=== PATIENT | female | born 1955 | race Caucasian/White ===

== ENCOUNTER 2022-03-16 12:35 | Emergency (ER) | payer OTHER, SELFPAY ==
[2022-03-16 13:07] VITALS: BP 125/79; PULSE 73; RESP 18; TEMP 36.9; O2SAT 98; BMI 26.1
[2022-03-16 13:22] LABS: MANUAL DIFF FLAG NO
[2022-03-16 13:25] LABS: Basophils Percent Auto 0.6 % (0-2); Eosinophils Percent Auto 0.4 % (0-4); Hematocrit 40.9 % (37.0-47.0); Hemoglobin 13.2 g/dl (12.0-16.0); Imm Gran Abs Auto 0.03 X10*3/uL (0.00-0.03); Imm Gran Pct Auto 0.4 % (0.0-0.4); Lymphocytes Absolute Auto 2.7 X10*3/uL (1.2-4.9); Lymphocytes Percent Auto 36.5 % (20-40); Mean Corpuscular HGB Conc 32.3 g/dl (31.0-35.0); Mean Corpuscular Hemoglobin 26.8 pg (27.0-33.0); Mean Platelet Volume 9.4 fL (9.4-12.3); Monocytes Absolute Auto 1.2 X10*3/uL (0.1-1.2); Monocytes Percent Auto 15.8 % (2-11); Neutrophils Absolute Auto 3.4 x10*3/uL (2.0-8.3); Neutrophils Percent Auto 46.3 % (45-73); Platelet Count 240 X10*3/uL (160-400); Red Blood Count 4.93 X10*6/uL (4.20-5.50); Red Cell Distribution Width 13.5 % (11.0-16.0); White Blood Count 7.3 X10*3/uL (4.8-10.8)
[2022-03-16 13:32] LABS: Appearance Urine CLEAR; Color Urine YELLOW; Glucose Urine UA NEG (NEG); Leukocyte Esterase Urine 2+ (NEG); Nitrite Urine NEG (NEG); Specific Gravity - Urine <= 1.005 (1.005-1.025); UACC Culture Trigger YES; Urine Blood NEG (NEG); Urine Ketones NEG (NEG); Urine Protein NEG (NEG-TRACE)
[2022-03-16 13:37] LABS: Anion Gap 13 (12-20); Blood Urea Nitrogen 16 mg/dL (9-16); Calcium 9.5 mg/dL (8.4-10.2); Carbon Dioxide 25 mmol/L (22-29); Chloride 101 mmol/L (96-108); Creatinine Clr Calc Pharmacy 64.4; Estimated Glomerular Filt Rate > 60; Glucose Random 88 mg/dL (60-115); Potassium 4.3 mmol/L (3.3-5.1); Sodium 135 mmol/L (135-145)
[2022-03-16 13:42] LABS: COVID-19 Test Negative (Negative); IDNOW Serial# 16C4AD1C; Influenza A Negative (Negative); Influenza B2 Negative (Negative)
[2022-03-16 13:55] LABS: Bacteria Urine 3+ /LPF; Mucus Urine TRACE /LPF; RBC Urine 0-2 /HPF (0); Squamous Epithelial Cell Urine 3+ /LPF
[2022-03-16 13:56] LABS: WBC Clumps Urine NOTED
--- NOTE | 2022-03-16 14:22 | ED_ITS ---
HPI - Female Genitourinary General Chief complaint: Urogenital-Female Stated complaint: fever Time Seen by Provider: 03/16/22 14:22 Source: patient and garden machinery mechanic Mode of arrival: ambulatory Limitations: language barrier History of Present Illness HPI Narrative: Patient is a 66 year old female presenting to the emergency department today with symptoms of a urinary tract infection. Patient states that she is concerned that she has a urinary tract infection because she is having fevers at home and increased urinary urgency/frequency. Patient denies any dizziness, lightheadedness, abdominal pain, nausea, vomiting, fever, chills, blurry vision, double vision, loss of vision, chest pain, difficulty breathing, shortness of breath, back pain, night sweats, pain with urination, blood in her urine or stool, syncope or a near syncopal episode, recent trauma or falls, bowel incontinence, bladder incontinence, bowel retention, bladder retention, or any other complaints at this time. MD elicited complaint: UTI Onset (ago): day(s) Vaginal discharge: none Vaginal bleeding: none Urinary symptoms: Urgency and Frequency Exacerbating factors: none Relieving factors: none Associated symptoms: denies other symptoms Treatment prior to arrival: none Patient : No Related Data Previous Rx's Medication Instructions Recorded cephalexin 500 mg capsule 500 mg PO Q6H 7 days #28 caps 03/16/22 Allergies Allergy/AdvReac Type Severity Reaction Status Date / Time No Known Allergies Allergy Verified 03/16/22 14:22 Review of Systems Constitutional: Constitutional: Reports no additional constitutional complaints, Denies chills, Denies fever(s) and Denies night sweats Eyes: Eyes: Reports no additional eye complaints, Denies blurry vision, Denies change in vision, Denies diplopia, Denies eye discharge, Denies loss of vision and Denies eye pain ENT: Denies dizziness Cardiovascular: Cardiovascular: Reports no additional cardiovascular complaints, Denies chest pain, Denies lightheadedness, Denies Loss of Consciousness and Denies dyspnea Respiratory: Respiratory: Reports no additional respiratory complaints and Denies dyspnea Gastrointestinal: Gastrointestinal: Reports no additional gastrointestinal complaints, Denies abdominal pain, Denies melena, Denies hematochezia, Denies change in bowel habits and Denies change in stool character Genitourinary: Genitourinary: Denies hematuria, Denies urinary frequency, Denies dysuria, Denies urinary incontinence, Denies urinary hesitancy and Reports urinary urgency Musculoskeletal: Musculoskeletal: Reports no additional musculoskeletal complaints, Denies numbness and Denies tingling Neurologic: Denies dizziness, Denies loss of vision, Denies numbness and Denies tingling Psychiatric: Psychiatric: Reports no additional psychiatric complaints Endocrine: Endocrine: Reports no additional endocrine complaints Hematologic/Lymphatic: Hematologic/Lymphatic: Reports no additional hematologic/lymphatic complaints Allergic/Immunologic: Allergic/Immunologic: Reports no additional allergic/immunologic complaints PMFSH Past Medical History Attestation statement: The following information was validated with the patient. Source: old records reviewed Social History Social History Advance Directives: No Advance Directives Information Provided: No Physical Exam Vital Signs: Vital Signs: Last Vital Signs Temp 98.4 F 03/16/22 13:07 Pulse 73 03/16/22 13:07 Resp 18 03/16/22 13:07 BP 125/79 03/16/22 13:07 Pulse Ox 98 03/16/22 13:07 O2 Del Method 03/16/22 13:07 BMI result Body Mass Index 26.1 Const: General: cooperative, no acute distress, alert and awake Nutritional Appearance: well nourished Orientation/consciousness: patient oriented x3 Limitations: no limitations HEENT: Head: Yes normal to inspection and Yes atraumatic Ears: hearing grossly normal bilaterally and external ears normal General nose exam: Normal external nose present, no nasal discharge noted and no epistaxis Face and sinus: Yes normal facial exam, No abrasion and No laceration Mouth: Normal oral and palatal mucosa present, no drooling and no muffled voice Eyes: General: appearance normal, both eyes and all related structures Periorbital: periorbital findings normal Eyelids: Yes eyelids normal Conjunctivae: conjunctivae normal Pupils: Equal, round and reactive pupils present EOM: EOMs intact bilaterally Neck: Neck: Yes normal visual inspection, Yes full ROM and Yes no lymphadenopathy Chest: Chest palpation & inspection: normal inspection of the chest Resp: Effort & Inspection: normal respiratory effort and able to speak in complete sentences Auscultation: clear to auscultation bilaterally Cardio: Rate: regular rate Rhythm: regular rhythm GI: Inspection: Yes normal to inspection Palpation (GI): Soft to palpation, not firm, nontender and no guarding Neuro: General: patient oriented x3 and moves all extremities Cranial nerves: Yes Equal, round and reactive pupils present Cognition (Neuro): n ormal cognition Motor exam (neuro): 5/5 motor strength present throughout Sensory Exam: Normal double simultaneous stimulation for sensation Coordination: [id number] test normal Extrem: General: Yes normal to inspection, Yes full ROM and Yes capillary refill normal Psych: Appearance: grossly normal Mental Status: mental status grossly normal Affect: normal affect Attitude: cooperative Thought process: Normal thought process present Thought content: Normal thought content present Insight: Good insight present (Psych) MDM - Female Genitourinary MDM Narrative Medical decision making narrative: Patient is a 66 year old female presenting to the emergency department today with a urinary tract infection. Patient's physical exam was unremarkable. Patient's blood work was unremarkable. Patient's urine showed an acute infection. I explained my physical exam findings as well as all test results to the patient. I answered all questions asked by the patient. I stressed the importance of the patient taking her medication as prescribed. I stressed the importance of the patient following up with her primary care provider. I stressed the importance of the patient returning to the emergency department immediately if her symptoms were to worsen or if she were to develop any dizziness, shortness of breath, difficulty breathing, chest pain, blurry vision, loss of vision, nausea, vomiting, abdominal pain, fever, chills, back pain, or any other complaints. Patient verbalized agreement and understanding with this treatment plan and discharge. Differential Diagnosis Differential diagnosis: Likely urinary tract infection Medical Records Attestation: I reviewed the patient's medical records. Lab Data Attestation: I reviewed the patient's lab results. Result diagrams: 03/16/22 13:16 03/16/22 13:16 Labs: Lab Results 03/16/22 03/16/22 03/16/22 Range/Units 13:16 13:16 13:16 WBC 7.3 (4.8-10.8) X10*3/uL RBC 4.93 (4.20-5.50) X10*6/uL Hgb 13.2 (12.0-16.0) g/dl Hct 40.9 (37.0-47.0) % MCV 83.0 (80.0-98.0) fL MCH 26.8 L (27.0-33.0) pg MCHC 32.3 (31.0-35.0) g/dl RDW 13.5 (11.0-16.0) % Plt Count 240 (160-400) X10*3/uL MPV 9.4 (9.4-12.3) fL Immature Gran % (Auto) 0.4 (0.0-0.4) % Neut % (Auto) 46.3 (45-73) % Lymph % (Auto) 36.5 (20-40) % [facility] [place] [facility] % (Auto) 15.8 H (2-11) % Eos % (Auto) 0.4 (0-4) % Baso % (Auto) 0.6 (0-2) % Lymph # (Auto) 2.7 (1.2-4.9) X10*3/uL [facility] [place] [facility] # (Auto) 1.2 (0.1-1.2) X10*3/uL Eos # (Auto) 0.0 (0.0-0.4) X10*3/uL Baso # (Auto) 0.0 (0.0-0.2) X10*3/uL Abs Immat Gran (auto) 0.03 (0.00-0.03) X10*3/uL Absolute Neuts (auto) 3.4 (2.0-8.3) x10*3/uL Absolute Nucleated RBC 0.000 (0.0-0.012) X10*3/uL Nucleated RBC % (auto) 0.0 (0.0-0.2) /100WBC Sodium 135 (135-145) mmol/L Potassium 4.3 (3.3-5.1) mmol/L Chloride 101 (96-108) mmol/L Carbon Dioxide 25 (22-29) mmol/L Anion Gap 13 (12-20) BUN 16 (9-16) mg/dL Creatinine 0.84 (0.5-1.4) mg/dL Estim Creat Clear Calc 64.4 Estimated GFR > 60 Random Glucose 88 (60-115) mg/dL Calcium 9.5 (8.4-10.2) mg/dL Urine Color Urine Appearance Urine pH (5.0-8.0) Ur Specific [place] (1.005-1.025) Urine Protein (NEG-TRACE) MG/DL Urine Glucose (UA) (NEG) MG/DL Urine Ketones (NEG) MG/DL Urine Blood (NEG) Urine Nitrite (NEG) Ur Leukocyte Esterase (NEG) Urine RBC (0) /HPF Urine WBC (0-4) /HPF Urine WBC Clumps Ur Squamous Epith Cells /LPF Urine Bacteria /LPF Urine Mucus /LPF COVID-19 (HERNANDO) (Negative) COVID-19 Clin Com Influenza Type A (PHILIP) Negative (Negative) Influenza Type B (PHILIP) Negative (Negative) Influenza A & B Note See Note 03/16/22 03/16/22 Range/Units 13:16 13:16 WBC (4.8-10.8) X10*3/uL RBC (4.20-5.50) X10*6/uL Hgb (12.0-16.0) g/dl Hct (37.0-47.0) % MCV (80.0-98.0) fL MCH (27.0-33.0) pg MCHC (31.0-35.0) g/dl RDW (11.0-16.0) % Plt Count (160-400) X10*3/uL MPV (9.4-12.3) fL Immature Gran % (Auto) (0.0-0.4) % Neut % (Auto) (45-73) % Lymph % (Auto) (20-40) % [facility] [place] [facility] % (Auto) (2-11) % Eos % (Auto) (0-4) % Baso % (Auto) (0-2) % Lymph # (Auto) (1.2-4.9) X10*3/uL [facility] # (Auto) (0.1-1.2) X10*3/uL Eos # (Auto) (0.0-0.4) X10*3/uL Baso # (Auto) (0.0-0.2) X10*3/uL Abs Immat Gran (auto) (0.00-0.03) X10*3/uL Absolute Neuts (auto) (2.0-8.3) x10*3/uL Absolute Nucleated RBC (0.0-0.012) X10*3/uL Nucleated RBC % (auto) (0.0-0.2) /100WBC Sodium (135-145) mmol/L Potassium (3.3-5.1) mmol/L Chloride (96-108) mmol/L Carbon Dioxide (22-29) mmol/L Anion Gap (12-20) BUN (9-16) mg/dL Creatinine (0.5-1.4) mg/dL Estim Creat Clear Calc Estimated GFR Random Glucose (60-115) mg/dL Calcium (8.4-10.2) mg/dL Urine Color YELLOW Urine Appearance CLEAR Urine pH 6.0 (5.0-8.0) Ur Specific [place] <= 1.005 (1.005-1.025) Urine Protein NEG (NEG-TRACE) MG/DL Urine Glucose (UA) NEG (NEG) MG/DL Urine Ketones NEG (NEG) MG/DL Urine Blood NEG (NEG) Urine Nitrite NEG (NEG) Ur Leukocyte Esterase 2+ H (NEG) Urine RBC 0-2 (0) /HPF Urine WBC 15-29 H (0-4) /HPF Urine WBC Clumps NOTED Ur Squamous Epith Cells 3+ /LPF Urine Bacteria 3+ /LPF Urine Mucus TRACE /LPF COVID-19 (HERNANDO) Negative (Negative) COVID-19 Clin Com See Note Influenza Type A (PHILIP) (Negative) Influenza Type B (PHILIP) (Negative) Influenza A & B Note Discharge Plan Discharge Clinical Impression: Urinary tract infection Patient Disposition: Home, Self-Care Instructions: Urinary Tract Infection in Women (ED) Additional Instructions: Follow up with your primary care provider. Return to the emergency department immediately if your symptoms worsen or if you develop any dizziness, shortness of breath, difficulty breathing, chest pain, blurry vision, loss of vision, nausea, vomiting, abdominal pain, fever, chills, back pain, or any other complaints. Prescriptions: New cephalexin 500 mg capsule 500 mg PO Q6H 7 Days Qty: 28 0RF Referrals: Lola Shine MD [Primary Care Provider] - Print Language: Latvian
== END 2022-03-16 14:50 | disposition home or self-care (01) ==
PROVIDERS: Emergency Provider Emergency Medicine; PCP Pediatrics
DX: N39.0 Urinary tract infection, site not specified (principal); Z20.822 Contact with and (suspected) exposure to COVID-19
CPT/HCPCS: 80048; 81001; 85025; 87086; 87088; 87186; 87502; 87635; 99283

== ENCOUNTER 2024-09-23 08:53 | Outpatient (REF) | payer OTHER, SELFPAY ==
--- OUTSIDE RECORDS SUMMARY | 2024-09-23 09:04 | XMS_ITS | Continuity of Care Document ---
Author Organization [facility] Address [address] [address],[address] [place] [address] Phone Care Team Providers Care Corporate Paralegal Name Role Phone Unavailable Unavailable Unavailable Allergies, Adverse Reactions, Alerts Substance Reaction Status Criticality No Known Allergies Active No Inform ation Medications Medication Instructions Dosage Effective Dates (start - stop) Status Comments penicillin V potassium 500 mg tablet take 1 tablet (500MG) by oral route every 6 hours for 7 days - Active chlorhexidine gluconate 0.12 % mouthwash place 15 milliliter by mucous membrane route 2 times every day in the mouth (after meals), swish in mouth for 30 seconds then spit out 15.00 milliliter - Active enalapril maleate 2.5 mg tablet take 1 tablet by oral route every day 2.5 MG - Active Excedrin Extra Strength 250 mg-250 mg-65 mg tablet - Active Procedures Procedure Date Intraoral-Complete Series (Including Bit ewings) Comprehensive Oral Evaluation-New Or Est ablished P Intraoral-Periapical First Film 017 Palliative (Emergency) Treatment Of [place] al Pain Advance Directives Directive Yes / No Effective Date File Name No Information Encounters Encounter Description Practice Location Reason(s) For Visit Diagnoses Date Provider Providers Copied on Encounter [facility] Velaz[facility], [address] [place] [address],[address], [place], [place], [id number], [place] tel:[phone] [address] [place] [address] Dental Encounter for dental exam and cleaning w/o abnormal findings 0-201 7 No Information Khai Velazquez [facility], [address] [place] [address],[address], [place], [place], [id number], [place] tel:[phone] Encounter for dental exam and cleaning w/o abnormal findings No Information Family History Family Member Type Diagnosis Age At Onset No Information Payers Payer name Insurance type Covered republican ID Marci jose(albin Durán [employer] [facility] +21 CI [id number] D [employer] Safety Net [id number] Social History Type Description Quantity Date Captured Comments Alcohol Use Details Unknown Caffeine Use Details Unknown Tobacco Use Status No Information Smoking Status Never smoker Non-Smoking Tobacco Use Details : No Details Available : No Details Available Sex Female Vital Signs Date / Time: Height Weight BMI Pulse Rate Blood Pressure Temperature Respiratory Rate Body Surface Area Head Circumference Head Circ. Percentile Wt./Jesus. Percentile BMI percentile Pulse Ox Inhaled Ox 3:39 PM 79 /min 116/78 mm[Hg] Chief Complaint And Reason For Visit No Information Reason For Referral Reason For Referral No Information Plan Of Treatment Date Type Action Status Goal CT-Colonography. Due on due Goal FIT-DNA. Due on due Goal HPV. Due on due Goal Unhealthy drug use screening . Due on due Goal Zoster vaccine (). Due on due Goal FOBT. Due on due Goal Hepatitis C Screening. Due o n due Goal Document SOGI Information. D ue on due Goal Lipid panel. Due on 017 due Goal Td vaccine. Due on 17 due Goal Colonoscopy. Due on 017 due Goal Mammogram. Due on 7 due Goal APE. Due on due Goal Tdap. Due on due Goal PAP. Due on due Goal Pap/HPV testing. Due on due Goal Influenza vaccine. Due on due Goal Mammogram. Due on 7 due Goal Colonoscopy. Due on 017 due Goal Pap/HPV testing. Due on due Goal Tdap. Due on due Goal APE. Due on due Goal Influenza vaccine. Due on due Goal PAP. Due on due History Of Present Illness Encounter Date Complaint History Of Prese nt Illness No Information Functional Status Date Functional Assessmen t No Information Instructions Date Instruction Additional Infor mation No Information Assessments Type Assessment Date No Information Patient Care Teams Name Effective Dates (start - stop) Status Members No Information
[2024-09-23 14:20] LABS: MANUAL DIFF FLAG NO
[2024-09-23 14:25] LABS: Basophils Absolute Auto 0.1 X10*3/uL (0.0-0.2); Basophils Percent Auto 0.5 % (0-2); Eosinophils Absolute Auto 0.1 X10*3/uL (0.0-0.4); Eosinophils Percent Auto 1.4 % (0-4); Hematocrit 42.9 % (37.0-47.0); Hemoglobin 13.9 g/dl (12.0-16.0); Imm Gran Abs Auto 0.04 X10*3/uL (0.00-0.03); Imm Gran Pct Auto 0.4 % (0.0-0.4); Lymphocytes Absolute Auto 2.1 X10*3/uL (1.2-4.9); Mean Corpuscular HGB Conc 32.4 g/dl (31.0-35.0); Mean Corpuscular Hemoglobin 28.1 pg (27.0-33.0); Mean Corpuscular Volume 86.8 fL (80.0-98.0); Mean Platelet Volume 10.8 fL (9.4-12.3); Monocytes Absolute Auto 0.5 X10*3/uL (0.1-1.2); Monocytes Percent Auto 5.5 % (2-11); Neutrophils Absolute Auto 6.6 x10*3/uL (2.0-8.3); Neutrophils Percent Auto 70.2 % (45-73); Platelet Count 203 X10*3/uL (160-400); Red Blood Count 4.94 X10*6/uL (4.20-5.50); Red Cell Distribution Width 13.5 % (11.0-16.0); White Blood Count 9.4 X10*3/uL (4.8-10.8)
[2024-09-23 14:48] LABS: Alanine Aminotransferase 68 U/L (0-31); Alkaline Phosphatase 102 U/L (39-117); Anion Gap 8 (12-20); Aspartate Amino Transferase 49 U/L (5-31); Bilirubin Direct 0.2 mg/dL (0.0-0.5); Bilirubin Total 0.6 mg/dL (0.0-1.0); Blood Urea Nitrogen 15 mg/dL (9-16); Calcium 9.3 mg/dL (8.4-10.2); Carbon Dioxide 28 mmol/L (22-29); Chloride 108 mmol/L (96-108); Cholesterol 219 mg/dL (<200); Estimated Glomerular Filt Rate > 60; Glucose Fasting 132 mg/dL (60-99); HDL Cholesterol 67 mg/dL (>40); LDL Cholesterol Calculated 131 mg/dL (<100); Potassium 4.3 mmol/L (3.3-5.1); Sodium 140 mmol/L (135-145); Total Protein 7.1 g/dL (6.5-8.0); Triglycerides 109 mg/dL (<150)
[2024-09-23 14:56] LABS: Creatinine Urine 101.98 mg/dL; Microalbum/Creatinine Ratio Ur 16.6 ug/mg cr (<30)
[2024-09-23 15:06] LABS: TSH reflex Free T4 1.74 uIU/mL (0.32-4.0)
== END 2024-09-23 08:54 | disposition home or self-care (01) ==
LOC: HO.CHCLDS 08:53
PROVIDERS: Visit Provider Pediatrics
DX: I10 Essential (primary) hypertension (principal); E78.00 Pure hypercholesterolemia, unspecified; F41.9 Anxiety disorder, unspecified; F32.A Depression, unspecified
CPT/HCPCS: 36415; 80048; 80061; 80076; 82043; 82570; 84443; 85025

== ENCOUNTER → 2024-11-04 08:12 | Outpatient (REF) | payer OTHER, SELFPAY ==
--- OUTSIDE RECORDS SUMMARY | 2024-11-04 08:14 | XMS_ITS | Encounter Summary ---
Author Organization [employer] Address [address] [place] [address] Care Team Providers Care Shed Workers Supervisor Name Role Phone Lola Shine MD Primary Care Provider [phone] Encounter Details Date Type Department Care Team (Late st Contact Info) Description 08/13/2023 Abstract [facility] MEDICINE [address] [place] [address] Sandee Galeas Social History Tobacco Use Types Packs/Day Years Used Date Smoking Tobacco: Never Passive Smoke Exposure: Never Smokeless Tobacco: Never Housing Stability Answer Date Recorded What is your housing situation today? [place] have [place] 07/29/[address] you li ve. Do you have problems with any of the following? None of the above 07/29/2023 Food Insecurity Answer Date Recorded Within the past 12 months, y ou worried that your food would run out before you got money to buy more: Never True 07/29/2023 Within the past 12 months,th e food you bought just didn't last and you didn't have enough money to get more: Never True Transportation Answer Date Recorded In the past 12 months, has l ack of transportation kept you from medical appts, meetings, work or from getting things needed for daily living? No 07/29/2023 Utilities Answer Date Recorded In the past 12 months, has t he electric, gas, oil or water company threatened to shut off services in your home? No 07/29/2023 Comments Unknown Sex and Gender Information Value Date Recorded Sex Assigned at Female 08/04/2022 10:20 AM EDT Legal Sex Female 10:20 AM EDT Gender Identity Female 08/04/2022 10:20 AM EDT Sexual Orientation Straight 08/04/2022 10 :20 AM EDT documented as of this encounter Plan of Treatment Upcoming Encounters Date Type Department Care Team (Late st Contact Info) Description 11/23/2024 11:30 AM EST Office Visit [facility] PEDS [address] [place] [address] Lola Shine MD [address] [place] [address] documented as of this encounter Procedures Procedure Name Priority Date/Time Associated Diagnosis Comments COLONOSCOPY Routine 06/05/2013 documented in this encounter Results * Hm Colonoscopy (06/05/2013) Colonoscopy Normal Normal Narrative Sandee Galeas - 06/05/2013 Recommended 5 year follow I[ us Historical Provider HEALTH MAINTENANCE Final Result documented in this encounter Visit Diagnoses Not on filedocumented in this encounter Care Teams Shed Workers Supervisor Relationship Specialty Start Date End Date Lola Shine MD [address] [place] [address] PCP - General Family Medicine 10/05/18 documented as of this encounter
--- OUTSIDE RECORDS SUMMARY | 2024-11-04 08:14 | XMS_ITS | Continuity of Care Document ---
Author Organization [facility] Address [address] [address],[address] [place] [address] Phone Care Team Providers Care Track Laying Supervisor Name Role Phone Unavailable Unavailable Unavailable Allergies, [...] First Film 017 Palliative (Emergency) Treatment Of [place] al Pain Advance Directives Directive Yes / No Effective Date File Name No Information Encounters Encounter Description Practice Location Reason(s) For Visit Diagnoses Date Provider Providers Copied on Encounter Khai Velazquez [facility], [address] [place] [address],[address], [place], [place], [id number], [place] tel:[phone] [address] [place] [address] Dental Encounter for dental exam and cleaning w/o abnormal findings 0-201 7 No Information [facility]ai Velazquez [facility], [address] [place] [address],[address], [place], [place], [id number], [place] tel:[phone] [facility] Encounter for dental exam and cleaning w/o abnormal findings No Information Family History Family Member Type Diagnosis Age At Onset No Information Payers Payer name Insurance type Covered democrat ID Marci jose(albin Durán [employer] [facility] +21 CI [id number] D Health Safety Net [id number] Social History Type Description Quantity Date Captured [...]
--- OUTSIDE RECORDS SUMMARY | 2024-11-04 08:14 | XMS_ITS | Encounter Summary ---
Author Organization [employer] Address [address] [place] [address] [place] [address] Care Team Providers Care Brine Supervisor Name Role Phone Lola Shine MD Primary Care Provider [phone] Reason for Visit * Reason Onset Date Comments Appointment Request 11/01/2024 Pt needs eladio t for derm Encounter Details Date Type Department Care Team ([facility] Contact Info) Description 11/01/[address] [facility] MED & PEDS [address] [place] [address] Lola Shine MD [address] [place] [address] Appointment Request (Pt needs appt for derm) Social History Tobacco Use Types Packs/Day Years Used Date Smoking Tobacco: Never Passive Smoke Exposure: Never Smokeless Tobacco: Never Depression Answer Date Recorded Patient Health Questionnaire-9 Score 11 09/22/2024 Patient Health Questionnaire-9 Score 11 09/22/2024 Last PHQ-9: Questionnaire Data Not on file 1 11/23/2023 Housing Stability Answer Date Recorded What is your housing situation today? I have [place] park 09/22/[address] you li ve. Do you have problems with any of the following? None of the above 09/22/2024 Food Insecurity Answer Date Recorded Within the past 12 months, y ou worried that your food would run out before you got money to buy more: Never True 09/22/2024 Within the past 12 months,th e food you bought just didn't last and you didn't have enough money to get more: Never True Transportation Answer Date Recorded In the past 12 months, has l ack of transportation kept you from medical appts, meetings, work or from getting things needed for daily living? No 09/22/2024 Utilities Answer Date Recorded In the past 12 months, has t he electric, gas, oil or water company threatened to shut off services in your home? No 09/22/2024 Depression Answer Date Recorded Patient Health Questionnaire-2 Score 4 09/22/2024 Internet Access Answer Date Recorded Internet Access Q1 Yes 09/22/2024 Internet Access Q2 Not on file 09/22/2024 Comments No Sex and Gender Information Value Date Recorded Sex Assigned at Female 08/04/2022 10:20 AM EDT Legal Sex Female 10:20 AM EDT Gender Identity Female 08/04/2022 10:20 AM EDT Sexual Orientation Straight 08/04/2022 10 :20 AM EDT documented as of this encounter Miscellaneous Notes * Telephone Encounter - Thuy Gonzales [place] - 11/01/2024 10:10 AM EST Called pt to schedule appt with dr. Worley f/u skin lesion no voice message qavailable phone not on sservice documented in this encounter Plan of Treatment Upcoming Encounters Date Type Department Care Team (Late st Contact Info) Description 11/23/2024 11:30 AM EST Office Visit [facility] PEDS [address] [place] [address] Lola Shine MD [address] [place] [address] documented as of this encounter Visit Diagnoses Not on filedocumented in this encounter Additional Health Concerns Assessment Noted Time PHQ-9 Depression Total Score: 11 024 2:37 PM EST documented as of this encounter Care Teams Brine Supervisor Relationship Specialty Start Date End Date Lola Shine MD [address] [place] [address] PCP - General Family Medicine 10/05/18 documented as of this encounter
--- OUTSIDE RECORDS SUMMARY | 2024-11-04 08:14 | XMS_ITS | Clinical Summary ---
Author Organization [facility] Address [address] [place] [address] [address] [place] [address] Care Team Providers Care Supplier Quality Specialist Name Role Phone Lola Shine MD Primary Care Provider [phone] Allergies No known active allergies Medications * This document contains information received from the source organization and may not represent a complete record from that organization. aspirin 81 MG EC tablet Take 81 mg by mouth 1 (one) time each day. 0 Active SM Vitamin D3 50 MCG capsuleIndication s:Vitamin D deficiency TAKE ONE CAPSULE TWICE DAILY 60 capsule 11 3 Active enalapril (Vasotec) 20 MG tabletIndications :Benign essential hypertension TAKE ONE TABLET EVERY DAY 90 tablet 1 4 Active Active Problems Problem Noted Date Diagnosed Date Primary insomnia 12/04/2015 Disorder of ankle joint 10/29/2012 Anxiety state 12/24/2011 Benign essential hypertension 12/24/2011 Pain in limb 12/24/2011 Pure hypercholesterolemia 12/24/2011 Urinary tract infectious disease 12/24/2011 Resolved Problems Problem Noted Date Diagnosed Date Resolved Date Acute pharyngitis 12/24/2011 09/18/2022 Acute upper respiratory infection 12/24/2011 09/18/2022 Encounters * This document contains information received from the source organization and may not represent a complete record from that organization. Date Type Department Care Team Description 11/01/2024 Telephone [facility] [address] [place] [address] Lola Shine MD Appointment Request (Pt needs appt for derm) 09/26/2024 Telephone [facility] [address] [place] [address] Lola Shine MD 09/25/2024 Orders Only [facility] [address] [place] [address] Lola Shine MD Transaminitis (Primary Dx) 09/22/2024 2:15 PM EST Office Visit [facility] [address] [place] [address] Lola Shine MD Benign essential hypertension (Primary Dx); Pure hypercholesterolemia; Anxiety and depression; Breast cancer screening by mammogram; Osteopenia of spine; Encounter for immunization; Dietary counseling; Exercise counseling; Skin lesion of left arm 09/22/2024 Travel 09/15/2024 Patient Outreach [facility] [address] [place] [address] Lola Shine MD Pre-visit Planning ([facility] unable to reach [facility]) from Last 3 Months Immunizations Name Administration Dates Next Due Influenza Injectable Quadriv alant Preservative Free IIV4 MDCK 09/30/2021 Influenza injectable quadriv alent IIV4 with preservative 08/21/2015 Influenza injectable quadriv alent preservative free 09/18/2022,09/30/2021,09/16/2016 Influenza, High Dose Seasona l, Preservative Free 09/22/2024 Influenza, IIV3, injectable 08/08/2014 Moderna Covid-19 Vaccine 12+ 01/31/2021,01/04/20 21 Pneumococcal Conjugate PCV 20 09/22/2024 Pneumococcal Polysaccharide PPSV23 02/21/2013 Tdap 12/04/2015 Social History Tobacco Use Types Packs/Day Years Used Date Smoking Tobacco: Never Passive Smoke Exposure: Never Smokeless Tobacco: Never Tobacco Cessation:Counseling Given: Not Answered Depression Answer Date Recorded Patient Health Questionnaire-9 [...] Orientation Straight 08/04/2022 10 :20 AM EDT Last Filed Vital Signs Vital Sign Reading Time Taken Comments Blood Pressure 128/78 09/22/2024 2:07 PM EST Pulse 80 09/22/2024 2:07 PM EST Temperature 36.7 ??C (98 ??F) 09/22/2024 2:07 PM EST Respiratory Rate 20 09/22/2024 2:07 PM EST Oxygen Saturation 98% 09/22/2024 2:07 PM EST Inhaled Oxygen Concentration - - Weight 83.5 kg (184 lb) 09/22/2024 2:07 PM EST Height 158.8 cm (5' 2.5 ) 09/22/2024 2:07 PM EST Body Mass Index 33.12 09/22/2024 2:07 PM EST Plan of Treatment Upcoming Encounters Date Type Department Care Team ([facility] st Contact Info) Description 11/23/2024 11:30 AM EST Office Visit [facility] [address] [place] [address] Lola Shine MD [address] [place] [address] Health Maintenance Due Date Last Done Comments CT Colonography 1955 FIT DNA/Cologuard 1955 FIT 1955 FOBT 1955 Sigmoidoscopy 1955 Hepatitis C Screening 1975 Mammogram 1997 Zoster Vaccines (1 of 2) 2007 Dental X-Ray: Bitewings 08/02/2009 08/01/2008 Dental X-Ray: Full Mouth 08/02/2011 08/01/2008 Dental Oral Exam 09/03/2012 03/02/2012, 08/14/2008 Dental Prophylaxis 09/03/2012 03/02/2012 Colonoscopy 06/05/2018 06/05/2013 Colorectal Cancer Screening 06/05/2018 COVID-19 Vaccine ( season) 2024 01/31/2021, 01/03/2021 Depression Monitoring (PHQ-9) 03/23/2025 09/22/2024, 09/22/2024 Alcohol/Substance Use Screening 09/22/2025 09/22/2024 Depression Screening 09/22/2025 09/22/2024, 09/22/20 24 SDOH Screening 09/22/2025 09/22/2024 Tobacco Screening 09/22/2025 09/22/2024 DTaP/Tdap/Td Vaccines (2 - Td or Tdap) 12/03/2025 12/04/2015 Lipid Panel 09/23/2029 09/23/2024, 11/05, 10/07/2021 RSV Patients and Patients Aged 60 years or older (1 - 1-dose 75+ series) 2032 Influenza Vaccine Completed 09/22/2024, , 09/30/2021, Additional history exists Pneumococcal Vaccine: 50+ Years Completed 09/22/2024, 02/21/2013 HIB Vaccines Aged Out No longer eligi ble based on patient's age to complete this topic HPV Vaccines Aged Out No longer eligi ble based on patient's age to complete this topic Hepatitis A Vaccines Aged Out No long er eligible based on patient's age to complete this topic Hepatitis B Vaccines Aged Out No long er eligible based on patient's age to complete this topic IPV Vaccines Aged Out No longer eligi ble based on patient's age to complete this topic Meningococcal Vaccine Aged Out No nahomi jean eligible based on patient's age to complete this topic RSV under 20 months Aged Out No longe r eligible based on patient's age to complete this topic Rotavirus Vaccines Aged Out No longer eligible based on patient's age to complete this topic Procedures Procedure Name Priority Date/Time Associated Diagnosis Comments ALBUMIN, RANDOM URINE W/CREATININE Routine 09/23/2024 9:00 AM EST Benign essential hypertension Pure hypercholesterolem ia Anxiety and depression LIPID PANEL, STANDARD Routine 09/23/2024 8:54 AM EST Benign essential hypertension Pure hypercholesterolem ia Anxiety and depression TSH W/REFLEX TO FT4 Routine 09/23/2024 8 :54 AM EST Benign essential hypertension Pure hypercholesterolem ia Anxiety and depression HEPATIC FUNCTION PANEL Routine 8:54 AM EST Benign essential hypertension Pure hypercholesterolem ia Anxiety and depression CBC WITH AUTO DIFFERENTIAL Routine 09/23/2024 8:54 AM EST Benign essential hypertension Pure hypercholesterolem ia Anxiety and depression BASIC METABOLIC PANEL, FASTING Routine 09/23/2024 8:54 AM EST Benign essential hypertension Pure hypercholesterolem ia Anxiety and depression HM COLONOSCOPY Routine 06/05/2013 PROPHYLAXIS - ADULT Routine 03/02/2012 1 2:00 AM EDT PERIODIC ORAL EVALUATION - ESTABLISHED PATIENT Routine 03/02/2012 12:00 AM EDT DIAGNOSTIC - DIAGNOSTIC IMAGING - INTRAORAL - COMPREHENSIVE SERIES OF RADIOGRAPHIC IMAGES Routine 08/01/2008 12:00 AM EDT from Last 3 Months or Most Recently Relevant to Health Maintenance Results * Albumin, Random Urine W/Creatinine (09/23/2024 9:00 AM EST) Creatinine, Urine 101.98 mg/dL [facility] Microalbumin Urine 17.0 mg/L [facility] Microalbum Creatinine Ratio Ur 16.6 <30 ug/mg cr [facility] Comment:Albumin/Creatinine R atio Reference Ranges: Normal: < 30 ug/mg creatinine Microalbuminuria: 30 - 300 ug/mg creatinineClinical Albuminuria: > 300 ug/mg creatinine Urine (Urine, Random) 09/23/2024 9:00 AM EST 09/23/2024 2:19 PM EST Lola Shine MD LAB URINE ORDERABLES Final Re sult Performing Organization Address [facility] de Phone Number [facility] [address] [place] [phone] * (ABNORMAL) Basic Metabolic Panel, Fasting (09/23/2024 8:54 AM EST) Sodium 140 135 - 145 mmol/L [facility] Potassium 4.3 3.3 - 5.1 mmol/L [facility] Chloride 108 96 - 108 mmol/L [facility] Carbon Dioxide 28 22 - 29 mmol/L [facility] Anion Gap 8(L) - 20 [facility] Urea Nitrogen (BUN) 15 9 - 16 mg/dL [facility] Creatinine, Serum 0.78 0.5 - 1.4 mg/dL [facility] Estimated Glomerular Filt Rate >60 [facility] Comment:Chronic Kidney Disea se: Estimated GFR < 60 mL/min/1.96l1Swhjys Kidney Disease: Estimated GFR < 15 mL/min/1.73m2 Glucose Fasting 132(H) 60 - 99 mg/dL [facility] Comment:A fasting glucose of 126 mg/dl or greater on more than oneoccasion is considered diagnostic of diabetes. Calcium 9.3 8.4 - 10.2 mg/dL [facility] Blood Venous blood specimen / Unknown 09/23/2024 8:54 AM EST 09/23/2024 2:14 PM EST us Lola Shine MD LAB BLOOD ORDERABLES Final Re sult Performing Organization Address [facility]/ZIP Co de Phone Number [facility] [address] [place] [phone] * TSH W/Reflex to FT4 (09/23/2024 8:54 AM EST) TSH reflex Free T4 1.74 0.32 - 4.0 uIU/mL [facility] Blood Venous blood specimen / Unknown 09/23/2024 8:54 AM EST 09/23/2024 2:14 PM EST us Lola Shine MD LAB BLOOD ORDERABLES Final Re sult [facility] [address] [place] [address] [phone] * (ABNORMAL) CBC auto differential (09/23/2024 8:54 AM EST) White Blood Count 9.4 4.8 - 10.8 X10*3/uL [facility] Red Blood Count 4.94 4.20 - 5.50 X10*6/uL [facility] Hemoglobin 13.9 12.0 - 16.0 g/dl [facility] Hematocrit 42.9 37.0 - 47.0 % [facility] Mean Corpuscular Volume 86.8 80.0 - 98.0 fL [facility] Mean Corpuscular Hemoglobin 28.1 27.0 - 33.0 pg [facility] Mean Corpuscular HGB Conc 32.4 31.0 - 35.0 g/dl [facility] Red Cell Distribution Width 13.5 11.0 - 16.0 % [facility] Platelet Count 203 160 - 400 X10*3/uL [facility] Mean Platelet Volume 10.8 9.4 - 12.3 fL [facility] Neutrophils Percent Auto 70.2 45 - 73 % [facility] Imm Gran Pct Auto 0.4 0.0 - 0.4 % [facility] Lymphocytes Percent Auto 22.0 20 - 40 % [facility] Monocytes Percent Auto 5.5 2 - 11 % [facility] Eosinophils Percent Auto 1.4 0 - 4 % [facility] Basophils Percent Auto 0.5 0 - 2 % [facility] NRBC Pct Auto 0.0 0.0 - 0.2 /100WBC [facility] Neutrophils Absolute Auto 6.6 2.0 - 8.3 x10*3/uL [facility] Imm Gran Abs Auto 0.04(H) 0.00 - 0.03 X10*3/uL [facility] Lymphocytes Absolute Auto 2.1 1.2 - 4.9 X10*3/uL [facility] Monocytes Absolute Auto 0.5 0.1 - 1.2 X10*3/uL [facility] Eosinophils Absolute Auto 0.1 0.0 - 0.4 X10*3/uL [facility] Basophils Absolute Auto 0.1 0.0 - 0.2 X10*3/uL [facility] NRBC Abs Auto 0.000 0.0 - 0.012 X10*3/uL [facility] Blood Venous blood specimen / Unknown 09/23/2024 8:54 AM EST 09/23/2024 2:14 PM EST us Lola Shine MD LAB BLOOD ORDERABLES Final Re sult [facility] [address] [place] [phone] * (ABNORMAL) Hepatic Function Panel (09/23/2024 8:54 AM EST) Bilirubin, Total 0.6 0.0 - 1.0 mg/dL [facility] Bilirubin, Direct 0.2 0.0 - 0.5 mg/dL [facility] Aspartate Amino Transferase 49(H) 5 - 31 U/L [facility] Alanine Aminotransferase 68(H) 0 - 31 U/L [facility] Total Protein 7.1 6.5 - 8.0 g/dL [facility] Albumin Level 4.0 3.5 - 5.0 g/dL [facility] Alkaline Phosphatase 102 39 - 117 U/L [facility] Blood Venous blood specimen / Unknown 09/23/2024 8:54 AM EST 09/23/2024 2:14 PM EST Lola Shine MD LAB BLOOD ORDERABLES Final Re sult Performing Organization Address [facility] Co de Phone Number [facility] [address] [place] [phone] * (ABNORMAL) Lipid Panel, Standard (09/23/2024 8:54 AM EST) Triglycerides 109 <150 mg/dL [facility] Comment:Desirable Triglyceri de: less than 150 mg/dLBorderline High Triglyceride 150-199 mg/dLHigh Triglyceride: 200-499 mg/dLVery High Triglyceride: greater than or equal to 5OO mg/dL Cholesterol 219(H) <200 mg/dL [facility] Comment:Desirable Cholestero l: less than 200 mg/dLBorderline High Cholesterol: 200-239 mg/dLHigh Cholesterol: greater than 239 mg/dL LDL Cholesterol Calculated 131(H) <100 mg/dL [facility] Comment:Desirable LDL: less than 100 mg/dLNear Optimal/Above Optimal LDL: 110- 129 mg/dLBorderline High LDL: 130-159 mg/dLHigh LDL: 160-189 mg/dLVery High LDL: greater than or equal to 190 mg/dL HDL Cholesterol 67 >40 mg/dL [facility] Comment:Desirable HDL: great er than 40 mg/dL Note: This HDL assay may give artificially low results in patients with liver disease. Blood Venous blood specimen / Unknown 09/23/2024 8:54 AM EST 09/23/2024 2:14 PM EST Lola Shine MD LAB BLOOD ORDERABLES Final Re sult Performing Organization Address City/[facility]/ZIP Co de Phone Number [facility] [address] [place] [phone] * Hm Colonoscopy (06/05/2013) Colonoscopy Normal Normal Narrative Sandee Galeas - 06/05/2013 Recommended 5 year follow I[ us Historical Provider HEALTH MAINTENANCE Final Result from Last 3 Months or Most Recently Relevant to Health Maintenance Insurance [facility] Care Teams Supplier Quality Specialist Relationship Specialty Start Date End Date Lola Shine MD [address] [place] [phone] PCP - General Family Medicine 10/05/18
--- NOTE | 2024-11-04 08:15 | CA_ITS ---
Transthoracic Echocardiogram Patient (Last, First, Middle): Tim Patel, Gender: Female Date of : 1955 Age: 68 Procedure Date: 11/04/2024 Procedure Type: Transthoracic Echocardiogram Location: OP Height: 157.48 cm Weight: 77.11 kg BSA: 1.78 m2 Heart Rate: 74 bpm BP: 130 / 84 mmHg Paper Making Machine Operator: Referring MD: Lola Shine MD Symptoms: I10 HTN FAM HX HEART DISEASE Study Quality: Good ECG Rhythm: Sinus Conclusions: - The left ventricular systolic function is normal. The calculated ejection fraction is 69% by biplane method. - No obvious valvular pathology seen on this study. - There is mild dilatation of the ascending aorta measuring 3.90 cm. Findings Left Ventricle Normal left ventricular cavity size. There is mildly increased left ventricular wall thickness. The left ventricular systolic function is normal. The calculated ejection fraction is 69% by biplane method. There is no evidence of regional wall motion abnormalities. Diastolic function is normal for age. Right Ventricle Normal right ventricular cavity size and systolic function. Atria Both atria are normal in size. Aortic Valve There is a normal trileaflet aortic valve. There is no aortic valve stenosis. Trace to mild aortic regurgitation. Mitral Valve The mitral valve appears normal. There is trace mitral valve regurgitation. There is no mitral valve stenosis. Pulmonic Valve The pulmonic valve is likely normal. Tricuspid Valve There is trace tricuspid valve regurgitation. There is no evidence of pulmonary hypertension. Great Vessels The aortic arch is normal in size. There is mild dilatation of the ascending aorta measuring 3.90 cm. Venous The inferior vena cava is normal in size and collapses greater than 50% with inspiration. Pericardium/Pleural There is no evidence of pericardial effusion. Prior Study Comparison Changes noted compared to prior study dated: 03/20/2009. see comment on ascending aorta. Recommendations, Care & Conclusions No obvious valvular pathology seen on this study. Measurements 2D Linear Measurements IVSd: 1.05 0.6-0.9/0.6-1.0 cm LVIDd: 4.03 3.9-5.3/4.2-5.9 cm LVIDd Index: 2.26 2.4-3.2/2.2-3.1 cm/m2 LVIDs: 2.72 2.0-3.6 cm LVPWd: 1.12 0.7-1.1 cm Ao Root: 3.00 2.1-3.5 cm LA Diam: 3.20 2.7-3.8/3.0-4.0 cm LAIDs Index: 1.80 1.5-2.3 cm/m2 LV Mass: 179.79 67-162/88-224 g LV Mass Index: 101.01 43-95/49-115 g/m2 LVOT Diam: 2.10 3.0+(-)1.3 cm 2D Systolic Function EF 4C: 70.70 >55% EF 2C: 67.30 >55% EF BiP: 69.30 >55% Mitral Valve MV Pk E: 0.58 MV PK A: 1.02 MV Decel Time: 151.00 E/A: 0.60 E'Lateral: 5.77 E'Medial: 4.68 E/E' Med: 12.40 E/E' Lat: 10.10 PHT: 44.00 MVA PHT: 5.00 Decel Letcher: 3.85 Aortic Valve AoV Pk Akbar: 1.66 AoV Mn Akbar: 1.11 AoV VTI: 0.35 AoV Pk Grad: 11.00 Aov Mn Grad: 6.00 ESTEVAN Cont.VTI: 2.31 LVOT LVOT Pk Akbar: 1.21 LVOT Mn Akbar: 0.77 LVOT VTI: 0.23 LVOT Pk Grad: 6.00 LVOT Mn Grad: 3.00 LVOT Diam: 2.10 LVOT Area: 3.46 Diastolic Function MV Pk E: 0.58 MV Pk A: 1.02 E/A: 0.60 E'Medial: 4.68 E/E' Med: 12.40 E' Laterial: 5.77 E/E' Lat: 10.10 Right Ventricle TAPSE (mm): 23.00 TVS' Akbar: 11.00 Tricuspid Valve TR Pk Akbar: 2.23 TR Pk Grad: 20.00 RA Press: 3.00 RVSP: 23.00 Great Vessels Aorta Ao Root-2D: 3.00 2.0-3.7 cm Ao Asc: 3.90 2.1-3.4 cm Ao Arch: 3.00 Pulmonary Valve PV Pk Akbar: 1.14 Peak PV Grad: 5.00 Updated in Other Vendor System with Status of Final Mikey Barrett MD electronically signed on 11/05/2024 12:42:33 PM with status of Final
== END ==
LOC: HO.CARD 08:12
PROVIDERS: PCP Pediatrics; Visit Provider Pediatrics
DX: I10 Essential (primary) hypertension (principal)
CPT/HCPCS: 93306

== ENCOUNTER → 2024-11-04 08:15 | Outpatient (BNV) | payer OTHER, SELFPAY | PROVIDERS: PCP Pediatrics; Visit Provider Internal Medicine | DX: I35.1 Nonrheumatic aortic (valve) insufficiency (principal) | CPT/HCPCS: 93306 ==

== ENCOUNTER → 2024-11-11 13:30 | Outpatient (BNV) | payer OTHER, SELFPAY | PROVIDERS: PCP Pediatrics; Visit Provider Radiology Diagnostic Radiology | DX: Z12.31 Encounter for screening mammogram for malignant neoplasm of breast (principal) | CPT/HCPCS: 77063; 77067 ==

== ENCOUNTER 2024-11-11 13:31 | Outpatient (REF) | payer OTHER, SELFPAY ==
--- NOTE | ~2024-11-11 | MM_ITS ---
EXAMINATION: DXA BONE DENSITY AXIAL HISTORY: Estrogen deficiency TECHNIQUE: [employer] Dual energy absorptiometry (DEXA) of the lumbar spine, total left hip, and femoral neck was performed. COMPARISON: There are no prior studies for comparison. FINDINGS: The bone mineral density of the lumbar spine is 1.025 with a T-score of -1.2, and a Z-score of 0.0. The bone mineral density of the left total hip is 1.030 with a T-score of 0.2, and a Z-score of 1.2. The bone mineral density of the left femoral neck is 0.907 with a T-score of -0.9, and a Z-score of 0.3. FRACTURE RISK: The FRAX index suggests a risk of major osteoporotic fracture of 8.0%, and of hip fracture 0.5%. MM/XR DEXA axial skeleton IMPRESSION: Based on bone mineral density, and according to World Health Organization (WHO) criteria, the diagnosis is consistent with osteopenia. All bone density values are in grams per centimeter squared (g/cm2). Statistically, 68% of repeat scans fall within 1 SD (+/- 0.010 g/cm2 for AP spine L1-L4) and 1 SD (+/- 0.012 g/cm2 for femur total) FRAX is a trademark of the [employer]'s [place] for Metabolic Bone Disease, a World Health Organization (WHO) Collaborating Center. Electronically signed by: Shad Richardson MD 11/15/2024 03:31 PM [facility]AD[facility]
--- OUTSIDE RECORDS SUMMARY | 2024-11-11 14:00 | XMS_ITS | Encounter Summary ---
Author Organization [employer] Address [address] [place] [address] Care Team Providers Care Covering Machine Tender Name Role Phone Lola Shine MD Primary Care Provider [phone] Encounter Details Date Type Department Care Team (Late st Contact Info) Description 08/13/2023 Abstract [facility] [address] [place] [address] Sandee Galeas Social History Tobacco Use Types Packs/Day Years Used Date Smoking Tobacco: Never Passive Smoke Exposure: Never Smokeless Tobacco: Never Housing Stability Answer Date Recorded What is your housing situation today? [place] [facility] 07/29/[address] you [...] Description 11/23/2024 11:30 AM EST Office Visit [facility] [address] [place] [address] Lola Shine MD [address] [place] [address] documented as of this encounter Procedures Procedure Name Priority Date/Time Associated Diagnosis Comments COLONOSCOPY Routine 06/05/2013 documented in this encounter Results * Hm Colonoscopy (06/05/2013) Colonoscopy Normal Normal Narrative Sandee Galeas - 06/05/2013 Recommended 5 year follow I[ us Historical Provider HEALTH MAINTENANCE Final Result documented in this encounter Visit Diagnoses Not on filedocumented in this encounter Care Teams Covering Machine Tender Relationship Specialty Start Date End Date Lola Shine MD [address] [place] [address] PCP - General Family Medicine 10/05/18 documented as of this encounter
--- OUTSIDE RECORDS SUMMARY | 2024-11-11 14:00 | XMS_ITS | Encounter Summary ---
Author Organization [employer] Address [address] [place] [address] [place] [address] Care Team Providers Care Wood Carving Machine Operator Name Role Phone Lola Shine MD Primary Care Provider [phone] Reason for Visit * Reason Onset Date Comments Appointment Request 11/01/2024 Pt needs eladio t for derm Encounter Details Date Type Department Care Team ([facility] Contact Info) Description 11/01/2024 Telephone [facility] [address] [place] [address] Lola Shine MD [address] [place] [address] Appointment Request (Pt needs appt for derm) [...] Description 11/23/2024 11:30 AM EST Office Visit [facility] [address] [place] [address] Lola Shine MD [address] [place] [address] documented as of this encounter Visit Diagnoses Not on filedocumented in this encounter Additional Health Concerns Assessment Noted Time PHQ-9 Depression Total Score: 11 024 2:37 PM EST documented as of this encounter Care Teams Wood Carving Machine Operator Relationship Specialty Start Date End Date Lola Shine MD [address] [place] [address] PCP - General Family Medicine 10/05/18 documented as of this encounter
--- OUTSIDE RECORDS SUMMARY | 2024-11-11 14:00 | XMS_ITS | Clinical Summary ---
Author Organization [facility] Address [address] [place] [address] [address] [place] [address] Care Team Providers Care Brazer Furnace Name Role Phone Lola Shine MD Primary Care Provider [phone] Allergies No known active allergies Medications * [...] organization. Date Type Department Care Team Description 11/07/2024 Telephone [facility] [address] [place] [address] Lola Shine MD Walk-In 11/01/2024 Telephone [facility] [address] [place] [address] Lola Shine MD Appointment Request (Pt needs appt for derm) 09/26/2024 Telephone [facility] [address] [place] [address] Lola Shine MD 09/25/2024 Orders Only [facility] [address] [place] [address] Lola Shine MD Transaminitis (Primary Dx) 09/22/2024 2:15 PM EST Office Visit [facility] [address] [place] [address] Lola Shine MD Benign essential hypertension (Primary Dx); Pure hypercholesterolemia; Anxiety and depression; Breast cancer screening by mammogram; Osteopenia of spine; Encounter for immunization; Dietary counseling; Exercise counseling; Skin lesion of left arm 09/22/2024 Travel 09/15/2024 Patient Outreach [facility] [address] [place] [address] Lola Shine MD Pre-visit Planning ([facility] unable to reach [facility]) from Last 3 Months Immunizations Name Administration [...] Description 11/23/2024 11:30 AM EST Office Visit [facility] [address] [place] [address] Lola Shine MD [address] [place] [address] Health Maintenance Due Date Last Done Comments [...] 9:00 AM EST) Creatinine, Urine 101.98 mg/dL [facility] Microalbumin Urine 17.0 mg/L H [facility] Microalbum Creatinine Ratio Ur 16.6 <30 ug/mg cr [facility] Comment:Albumin/Creatinine R atio Reference Ranges: Normal: < 30 ug/mg creatinine Microalbuminuria: 30 - 300 ug/mg creatinineClinical Albuminuria: > 300 ug/mg creatinine Urine (Urine, Random) 09/23/2024 9:00 AM EST 09/23/2024 2:19 PM EST us Lola Shine MD LAB URINE ORDERABLES Final Re sult [facility] [address] [place] [phone] * (ABNORMAL) Basic Metabolic Panel, Fasting (09/23/2024 8:54 AM EST) Sodium 140 135 - 145 mmol/L [facility] Potassium 4.3 3.3 - 5.1 mmol/L [facility] Chloride 108 96 - 108 mmol/L [facility] Carbon Dioxide 28 22 - 29 mmol/L [facility] Anion Gap 8(L) 12 - 20 [facility] Urea Nitrogen (BUN) 15 9 - 16 mg/dL [facility] Creatinine, Serum 0.78 0.5 - 1.4 mg/dL [facility] Estimated Glomerular Filt Rate >60 [facility] Comment:Chronic Kidney Disea se: Estimated GFR < 60 mL/min/[id number] Kidney Disease: Estimated GFR < 15 mL/min/1.73m2 Glucose Fasting 132(H) 60 - 99 mg/dL [facility] Comment:A fasting glucose of 126 mg/dl or greater on more than oneoccasion is considered diagnostic of diabetes. Calcium 9.3 8.4 - 10.2 mg/dL [facility] Blood Venous blood specimen / Unknown 09/23/2024 8:54 AM EST 09/23/2024 2:14 PM EST us Lola Shine MD LAB BLOOD ORDERABLES Final Re sult Performing Organization Address City/[facility]/ZIP Co de Phone Number [facility] [address] [place] [address] [phone] * TSH W/Reflex to FT4 (09/23/2024 8:54 AM EST) Pathologist [facility] TSH reflex Free T4 1.74 0.32 - 4.0 uIU/mL [facility] Blood Venous blood specimen / Unknown 09/23/2024 8:54 AM EST 09/23/2024 2:14 PM EST Lola Shine MD LAB BLOOD ORDERABLES Final Re sult Performing Organization Address [facility] Co de Phone Number [facility] [address] [place] [address] [phone] * (ABNORMAL) CBC auto differential (09/23/2024 8:54 AM EST) [facility] White Blood Count 9.4 4.8 - 10.8 X10*3/uL [facility] Red Blood Count 4.94 4.20 - 5.50 X10*6/uL [facility] Hemoglobin 13.9 12.0 - 16.0 g/dl [facility] Hematocrit 42.9 37.0 - 47.0 % [facility] Mean Corpuscular Volume 86.8 80.0 - 98.0 fL [facility] Mean Corpuscular Hemoglobin 28.1 27.0 - 33.0 pg [facility] Mean Corpuscular HGB Conc 32.4 31.0 - 35.0 g/dl [facility] Red Cell Distribution Width 13.5 11.0 - 16.0 % [facility] Platelet Count 203 160 - 400 X10*3/uL [facility] Mean Platelet Volume 10.8 9.4 - 12.3 fL [facility] Neutrophils Percent Auto 70.2 45 - 73 % [facility] Imm Gran Pct Auto 0.4 0.0 - 0.4 % [facility] Lymphocytes Percent Auto 22.0 20 - 40 % [facility] Monocytes Percent Auto 5.5 2 - 11 % [facility] Eosinophils Percent Auto 1.4 0 - 4 % [facility] Basophils Percent Auto 0.5 0 - 2 % [facility] NRBC Pct Auto 0.0 0.0 - 0.2 /100WBC [facility] Neutrophils Absolute Auto 6.6 2.0 - 8.3 x10*3/uL [facility] Imm Gran Abs Auto 0.04(H) 0.00 - 0.03 X10*3/uL [facility] Lymphocytes Absolute Auto 2.1 1.2 - 4.9 X10*3/uL [facility] Monocytes Absolute Auto 0.5 0.1 - 1.2 X10*3/uL [facility] Eosinophils Absolute Auto 0.1 0.0 - 0.4 X10*3/uL [facility] Basophils Absolute Auto 0.1 0.0 - 0.2 X10*3/uL [facility] NRBC Abs Auto 0.000 0.0 - 0.012 X10*3/uL [facility] Blood Venous blood specimen / Unknown 09/23/2024 8:54 AM EST 09/23/2024 2:14 PM EST us Lola Shine MD LAB BLOOD ORDERABLES Final Re sult [facility] [address] [place] [phone] * (ABNORMAL) Hepatic Function Panel (09/23/2024 8:54 AM EST) Bilirubin, Total 0.6 0.0 - 1.0 mg/dL [facility] Bilirubin, Direct 0.2 0.0 - 0.5 mg/dL [facility] Aspartate Amino Transferase 49(H) 5 - 31 U/L [facility] Alanine Aminotransferase 68(H) 0 - 31 U/L [facility] Total Protein 7.1 6.5 - 8.0 g/dL [facility] Albumin Level 4.0 3.5 - 5.0 g/dL [facility] Alkaline Phosphatase 102 39 - 117 U/L [facility] Blood Venous blood specimen / Unknown 09/23/2024 8:54 AM EST 09/23/2024 2:14 PM EST Lola Shine MD LAB BLOOD ORDERABLES Final Re sult Performing Organization Address [facility] de Phone Number [facility] [address] [place] [phone] * (ABNORMAL) Lipid Panel, Standard (09/23/2024 8:54 AM EST) Triglycerides 109 <150 mg/dL [facility] Comment:Desirable Triglyceri de: less than 150 mg/dLBorderline High Triglyceride 150-199 mg/dLHigh Triglyceride: 200-499 mg/dLVery High Triglyceride: greater than or equal to 5OO mg/dL Cholesterol 219(H) <200 mg/dL [facility] Comment:Desirable Cholestero l: less than 200 mg/dLBorderline High Cholesterol: 200-239 mg/dLHigh Cholesterol: greater than 239 mg/dL LDL Cholesterol Calculated 131(H) <100 mg/dL [facility] Comment:Desirable LDL: less than 100 mg/dLNear Optimal/Above Optimal LDL: 110- 129 mg/dLBorderline High LDL: 130-159 mg/dLHigh LDL: 160-189 mg/dLVery High LDL: greater than or equal to 190 mg/dL HDL Cholesterol 67 >40 mg/dL [facility] Comment:Desirable HDL: great er than 40 mg/dL Note: This HDL assay may give artificially low results in patients with liver disease. Blood Venous blood specimen / Unknown 09/23/2024 8:54 AM EST 09/23/2024 2:14 PM EST us Lola Shine MD LAB BLOOD ORDERABLES Final Re sult Performing Organization Address City/[facility]/ZIP Co de Phone Number [facility] [address] [place] [address] [phone] * Hm Colonoscopy (06/05/2013) Colonoscopy Normal Normal Narrative Sandee Galeas - 06/05/2013 Recommended 5 year follow I[ us Historical Provider MD HEALTH MAINTENANCE Final Result from Last 3 Months or Most Recently Relevant to Health Maintenance Insurance - [employer] Care Teams [employer]ace Relationship Specialty Start Date End Date Lola Shine MD [address] [place] [phone] PCP - General Family Medicine 10/05/18
--- OUTSIDE RECORDS SUMMARY | 2024-11-11 14:00 | XMS_ITS | Encounter Summary ---
Author Organization [employer] Address [address] [facility] [address] [place] [address] Care Team Providers Care Tray Casting Machine Operator Name Role Phone Lola Shine MD Primary Care Provider [phone] Reason for Visit * Reason Onset Date Comments Walk-In 11/07/2024 Encounter Details Date Type Department Care Team ([facility] Contact Info) Description 11/07/2024 Telephone [facility] [address] [place] [address] Lola Shine MD [address] [place] [address] Walk-In Social History Tobacco Use Types Packs/Day Years [...] encounter Miscellaneous Notes * Telephone Encounter - Robina Dominguez RN - 11/07/2024 2:48 PM EST Patient brought back to be triaged. There is a medium sized, red area to her right elbow. Elbow is hot to the touch. Patient endorses itchiness, but denied pain. Patient states she has not tried benadryl. Patient encouraged to go to walk-in clinic in [place], which she declined. Encouraged patient to call office or go to walk-in clinic if rash becomes larger in size, painful, cracking of the skin. Patient stated understanding and agrees with the plan. * Telephone Encounter - Sampson Calloway - 11/07/2024 2:21 PM EST Pt walked in stating she has a rash on right elbow . 3wks Pt is here sitting in waiting area. documented in this encounter Plan of Treatment Upcoming Encounters Date Type Department Care Team ([facility] st Contact Info) Description 11/23/2024 11:30 AM EST Office Visit [facility] [address] [place] [address] Lola Shine MD [address] [place] [address] documented as of this encounter Visit Diagnoses Not on filedocumented in this encounter Additional Health Concerns Assessment Noted Time PHQ-9 Depression Total Score: 11 09/22/ 024 2:37 PM EST documented as of this encounter Care Teams Tray Casting Machine Operator Relationship Specialty Start Date End Date Lola Shine MD [address] [place] [address] PCP - General Family Medicine 10/05/18 documented as of this encounter
--- OUTSIDE RECORDS SUMMARY | 2024-11-11 14:00 | XMS_ITS | Continuity of Care Document ---
Author Organization [facility] [place] [facility] Address [address] [address],[address] [place] [address] Phone Care Team Providers Care Munitions Factory Worker Name Role Phone Unavailable Unavailable Unavailable Allergies, [...] First Film 017 [facility] Pain Advance Directives Directive Yes / No Effective Date File Name No Information Encounters Encounter Description Practice Location Reason(s) For Visit Diagnoses Date Provider Providers Copied on Encounter [facility] Velaz[facility], [address] [place] [address],[address], [place], [place], [id number], [place] tel:[phone] [address] [place] [address] Dental Encounter for dental exam and cleaning w/o abnormal findings 0-201 7 No Information Khai Velazquez [facility], [address] [place] [address],[address], [place], [place], [id number], [place] tel:[phone] Encounter for dental exam and cleaning w/o abnormal findings No Information Family History Family Member Type Diagnosis Age At Onset No Information Payers Payer name Insurance type Covered republican ID Marci jose(albin Durán [employer] [facility] [phone] CI [id number] [employer] [id number] Social History Type Description Quantity Date Captured [...]
== END 2024-11-11 13:32 | disposition home or self-care (01) ==
LOC: HO.MAMMO 13:31
PROVIDERS: PCP Pediatrics; Visit Provider Pediatrics
DX: Z12.31 Encounter for screening mammogram for malignant neoplasm of breast (principal); Z13.820 Encounter for screening for osteoporosis; M85.88 Other specified disorders of bone density and structure, other site
CPT/HCPCS: 77063; 77067; 77080

== ENCOUNTER 2024-12-30 08:26 | Outpatient (REF) | payer OTHER, SELFPAY ==
--- NOTE | ~2024-12-30 | MM_ITS ---
EXAMINATION: MM DIAGNOSTIC DIGITAL BREAST TOMOSYNTHESIS, BILATERAL Bilateral Limited ultrasound. CLINICAL INFORMATION: Call back from screening for bilateral focal asymmetries. Remote history of reduction mammoplasty. COMPARISON: Mammography: Comparison is made with relevant prior exams. TECHNIQUE: Digital breast mammography with tomosynthesis is performed in both the craniocaudal and mediolateral oblique views along with computer-aided detection (CAD). FINDINGS: The breasts are heterogeneously dense, which may obscure small masses (ACR BI-RADS breast composition Category c). Right: 5 mm Oval mass persists in the upper inner breast posterior depth. No suspicious calcifications or other abnormal findings. Targeted color Doppler ultrasound demonstrates a hypoechoic oval circumflex solid mass versus normal intramammary lymph node at 2:00 5 cm from nipple measuring 4 x 4 by 5 mm which correlates with the mammographic oval mass. Left: Focal asymmetry in the central slightly outer breast far posterior depth this could represent post reduction mammoplasty changes. No suspicious calcifications or other abnormal findings. Targeted color Doppler ultrasound scanning in the left breast from 2-7 o'clock and in the retroareolar region demonstrates normal fibronodular breast tissue. Results are provided to the patient at time of visit by the technologist. MM/MM tomosynthesis added view BI IMPRESSION: Left: Focal asymmetry retroareolar region far posterior depth without sonographic correlate. Recommend 6 month follow-up mammography for further evaluation of stability. This area could likely represent post reduction mammoplasty changes. Right: Circumscribed oval mass on ultrasound at 2:00 5 cm from nipple could represent normal intramammary lymph node versus solid mass. Recommend 6 month follow-up ultrasound for further evaluation of stability. ASSESSMENT: BI-RADS BI-RADS 3 - Probably benign finding(s) - 6 month follow-up suggested RECOMMENDATION: 6 Month F/U This patient's information was entered into a reminder system with a target due date for their next mammogram. Electronically signed by: Traci Rick DO 12/30/2024 09:33 AM EDT
== END 2024-12-30 08:27 | disposition home or self-care (01) ==
LOC: HO.MAMMO 08:26
PROVIDERS: PCP Pediatrics; Visit Provider Pediatrics
DX: N64.89 Other specified disorders of breast (principal)
CPT/HCPCS: 76642; 77062; 77066

== ENCOUNTER → 2024-12-30 08:30 | Outpatient (BNV) | payer OTHER, SELFPAY | PROVIDERS: PCP Pediatrics; Visit Provider Internal Medicine | DX: R92.8 Other abnormal and inconclusive findings on diagnostic imaging of breast (principal) | CPT/HCPCS: 76642; 77066; G0279 ==

== ENCOUNTER 2025-06-19 10:24 | Outpatient (REF) | payer OTHER, SELFPAY ==
--- OUTSIDE RECORDS SUMMARY | 2025-06-19 13:15 | XMS_ITS | Encounter Summary ---
Author Organization [employer] Address [address] [facility] [address] [place] [address] Care Team Providers Care Consumer Insight Analyst Name Role Phone Lola Shine MD Primary Care Provider [phone] Encounter Details Date Type Department Care Team (Late st Contact Info) Description 08/13/2023 Abstract [facility] [address] [place] [address] Sandee Galeas Social History Tobacco Use Types [...] as of this encounter Plan of Treatment Not on file documented as of this encounter Procedures Procedure Name Priority Date/Time Associated Diagnosis Comments COLONOSCOPY Routine 06/05/2013 documented in this encounter Results * Colonoscopy (06/05/2013) Colonoscopy Normal Normal Narrative Sandee Galeas - 06/05/2013 Recommended 5 year follow I[ us Historical Provider HEALTH MAINTENANCE Final Result documented in this encounter Visit Diagnoses Not on filedocumented in this encounter Care Teams Consumer Insight Analyst Relationship Specialty Start Date End Date Lola Shine MD [address] [place] [phone] PCP - General Family Medicine 10/05/18 documented as of this encounter
--- OUTSIDE RECORDS SUMMARY | 2025-06-19 13:15 | XMS_ITS | Clinical Summary ---
Author Organization [employer] Address [address] [place] [address] [address] [place] [address] Care Team Providers Care Stock Manager Name Role Phone Lola Shine MD Primary Care Provider [phone] Allergies No known active allergies Medications * [...] tabletIndications :Benign essential hypertension TAKE ONE TABLET BY MOUTH EVERY DAY 90 tablet 1 5 Active Active Problems Problem Noted Date Diagnosed Date Primary insomnia 12/04/2015 Disorder of ankle joint 10/29/2012 Anxiety state 12/24/2011 Benign essential hypertension 12/24/2011 Pain in limb 12/24/2011 Pure hypercholesterolemia 12/24/2011 Urinary tract infectious disease 12/24/2011 Resolved Problems Problem Noted Date Diagnosed Date Resolved Date Acute pharyngitis 12/24/2011 09/18/2022 Acute upper respiratory infection 12/24/2011 09/18/2022 Encounters Date Type Department Care Team Description 05/23/2025 11:30 AM EDT Office Visit [facility] [address] [place] [address] Lola Shine MD Uterine prolapse (Primary Dx); Transaminitis; Screening for colon cancer; Benign essential hypertension 05/23/2025 Travel 05/22/2025 Telephone [facility] [address] [place] [address] Lola Shine MD Chart Prep from Last 3 Months Immunizations Immunization Administration Dates Next Due Influenza Injectable Quadriv [...] Sign Reading Time Taken Comments Blood Pressure 114/72 05/23/2025 11:07 AM EDT Pulse 80 05/23/2025 11:07 AM EDT Temperature 37.7 C (99.8 F) 05/23/2025 11:07 AM EDT Respiratory Rate 16 05/23/2025 11:07 AM EDT Oxygen Saturation 96% 11/23/2024 11:14 AM EST Inhaled Oxygen Concentration - - Weight 79.4 kg (175 lb) 05/23/2025 11:07 AM EDT Height 157.5 cm (5' 2 ) 11/23/2024 11:14 AM EST Body Mass Index 32.01 11/23/2024 11:14 AM EST Plan of Treatment Health Maintenance Due Date Last Done Comments CT Colonography 1957 FIT DNA/Cologuard 1957 FIT 1957 FOBT 1955 Sigmoidoscopy 1955 Hepatitis C Screening 1975 Zoster Vaccines (1 of 2) 2007 Dental X-Ray: Bitewings 08/02/2009 08/01/2008 Dental X-Ray: Full Mouth 08/02/2011 08/01/2008 Dental Oral Exam 09/03/2012 03/02/2012, 08/14/2008 Dental Prophylaxis 09/03/2012 03/02/2012 Colonoscopy 06/05/2018 06/05/2013 Colorectal Cancer Screening 06/05/2018 Depression Monitoring 03/23/2025 09/22/2024, 024 COVID-19 Vaccine ( season) 2025 01/31/2021, 01/03/2021 Influenza Vaccine (#1) 2025 , 09/18/2022, 09/30/2021, Additional history exists Mammogram 07/02/2025 12/30/2024, 11/11/2024 Alcohol/Substance Use Screening 09/22/2025 09/22/2024 SDOH Screening 09/22/2025 09/22/2024 DTaP/Tdap/Td Vaccines (2 - Td or Tdap) 12/03/2025 12/04/2015 Tobacco Screening 05/23/2026 05/23/2025 Lipid Panel 09/23/2029 09/23/2024, 11/05, 10/07/2021 RSV Patients and Patients Aged 60 years or older (1 - 1-dose 75+ series) 2032 Pneumococcal Vaccine: 50+ Years Completed 09/22/2024, 02/21/2013 [...] patient's age to complete this topic Meningococcal B Vaccine Aged Out No l onger eligible based on patient's age to complete [...] Procedure Name Priority Date/Time Associated Diagnosis Comments BI US BREAST LIMITED BILATERAL Routine 12/30/2024 8:30 AM EDT LIPID PANEL, STANDARD Routine 09/23/2024 8:54 AM EST Benign essential hypertension Pure hypercholesterolemi a Anxiety and depression HM COLONOSCOPY Routine 06/05/2013 PROPHYLAXIS - ADULT Routine 03/02/2012 1 2:00 AM EDT PERIODIC ORAL EVALUATION - ESTABLISHED PATIENT Routine 03/02/2012 12:00 AM EDT INTRAORAL - COMPLETE SERIES OF RADIOGRAPHIC IMAGES Routine 08/01/2008 12:00 AM EDT from Last 3 Months or Most Recently Relevant to Health Maintenance Results * BI US Breast Limited Bilateral (12/30/2024 8:30 AM EDT) Anatomical Region Laterality Modality Breast Bilateral Ultrasound 12/30/2024 8:30 AM EDT Narrative 12/30/2024 9:35 AM EDT [facility] [address] [place], [place] [address] Ultrasound Report Signed Patient: Tim Patel MR#: [id number] 43 : 1955 Acct:[id number] Age/Sex: 69 / F ADM Date: 12/30/24 Loc: HO.MAMMO Attending Dr: Lola Shine MD Ordering Physician: Lola Shine MD Date of Service: 12/30/24 Procedure(s): US breast BI limited mamm only Accession Number(s): [id number] cc: Lola Shine MD EXAMINATION: MM DIAGNOSTIC DIGITAL BREAST TOMOSYNTHESIS, BILATERAL Bilateral Limited ultrasound. CLINICAL INFORMATION: Call back from screening for bilateral focal asymmetries. Remote history of reduction mammoplasty. COMPARISON: Mammography: Comparison is made with relevant prior exams. TECHNIQUE: Digital breast mammography with tomosynthesis is performed in both the craniocaudal and mediolateral oblique views along with computer-aided detection (CAD). FINDINGS: The breasts are heterogeneously dense, which may obscure small masses (ACR BI-RADS breast composition Category c). Right: 5 mm Oval mass persists in the upper inner breast posterior depth. No suspicious calcifications or other abnormal findings. Targeted color Doppler ultrasound demonstrates a hypoechoic oval circumflex solid mass versus normal intramammary lymph node at 2:00 5 cm from nipple measuring 4 x 4 by 5 mm which correlates with the mammographic oval mass. Left: Focal asymmetry in the central slightly outer breast far posterior depth this could represent post reduction mammoplasty changes. No suspicious calcifications or other abnormal findings. Targeted color Doppler ultrasound scanning in the left breast from 2-7 o'clock and in the retroareolar region demonstrates normal fibronodular breast tissue. Results are provided to the patient at time of visit by the technologist. US/US breast BI limited mamm only IMPRESSION: Left: Focal asymmetry retroareolar region far posterior depth without sonographic correlate. Recommend 6 month follow-up mammography for further evaluation of stability. This area could likely represent post reduction mammoplasty changes. Right: Circumscribed oval mass on ultrasound at 2:00 5 cm from nipple could represent normal intramammary lymph node versus solid mass. Recommend 6 month follow-up ultrasound for further evaluation of stability. ASSESSMENT: BI-RADS BI-RADS 3 - Probably benign finding(s) - 6 month follow-up suggested RECOMMENDATION: 6 Month F/U This patient's information was entered into a reminder system with a target due date for their next mammogram. Electronically signed by: Traci Rick DO 12/30/2024 09:33 AM EDT Dictated By: Traci Rick DO Signed By: <Electronically signed by Traci Rick DO in OV> 12/30/24932 DD/ 9 TD/TT: 12/30/24926 Barrel Raiser Helper: Procedure Note Donotuseinterpreter, Image - 12/30/2024 [facility] [address] [place] [address] Ultrasound Report Signed Patient: Destiny Patel#: [id number] [birth year] : 8Acct:[id number] Age/Sex: 69 / FADM Date: 12/30/24 Loc: HO.MAMMO Attending Dr: Lola Shine MD Ordering Physician: Lola Shine MD Date of Service: 12/30/24 Procedure(s): US breast BI limited mamm only Accession Number(s): [id number] cc: Lola Shine MD EXAMINATION: MM DIAGNOSTIC DIGITAL BREAST TOMOSYNTHESIS, BILATERAL Bilateral Limited ultrasound. CLINICAL INFORMATION: Call back from screening for bilateral focal asymmetries. Remote history of reduction mammoplasty. COMPARISON: Mammography: Comparison is made with relevant prior exams. TECHNIQUE: Digital breast mammography with tomosynthesis is performed in both the craniocaudal and mediolateral oblique views along with computer-aided detection (CAD). FINDINGS: The breasts are heterogeneously dense, which may obscure small masses (ACR BI-RADS breast composition Category c). Right: 5 mm Oval mass persists in the upper inner breast posterior depth. No suspicious calcifications or other abnormal findings. Targeted color Doppler ultrasound demonstrates a hypoechoic oval circumflex solid mass versus normal intramammary lymph node at 2:00 5 cm from nipple measuring 4 x 4 by 5 mm which correlates with the mammographic oval mass. Left: Focal asymmetry in the central slightly outer breast far posterior depth this could represent post reduction mammoplasty changes. No suspicious calcifications or other abnormal findings. Targeted color Doppler ultrasound scanning in the left breast from 2-7 o'clock and in the retroareolar region demonstrates normal fibronodular breast tissue. Results are provided to the patient at time of visit by the technologist. US/US breast BI limited mamm only IMPRESSION: Left: Focal asymmetry retroareolar region far posterior depth without sonographic correlate. Recommend 6 month follow-up mammography for further evaluation of stability. This area could likely represent post reduction mammoplasty changes. Right: Circumscribed oval mass on ultrasound at 2:00 5 cm from nipple could represent normal intramammary lymph node versus solid mass. Recommend 6 month follow-up ultrasound for further evaluation of stability. ASSESSMENT: BI-RADS BI-RADS 3 - Probably benign finding(s) - 6 month follow-up suggested RECOMMENDATION: 6 Month F/U This patient's information was entered into a reminder system with a target due date for their next mammogram. Electronically signed by: Traci Rick DO 12/30/2024 09:33 AM EDT Dictated By: Traci Rick DO Signed By: <Electronically signed by Traci Rick DO in OV> 12/30/2433 DD/ 9 TD/TT: 12/30/24926 Barrel Raiser Helper: us Lola Shine MD IM US PROCEDURES Final Resul t * (ABNORMAL) Lipid Panel, Standard (09/23/2024 8:54 AM EST) Triglycerides 109 <150 mg/dL [facility] Comment:Desirable Triglyceri de: less than 150 mg/dLBorderline High Triglyceride 150-199 mg/dLHigh Triglyceride: 200-499 mg/dLVery High Triglyceride: greater than or equal to 5OO mg/dL Cholesterol 219(H) <200 mg/dL [facility] Comment:Desirable Cholestero l: less than 200 mg/dLBorderline High Cholesterol: 200-239 mg/dLHigh Cholesterol: greater than 239 mg/dL LDL Cholesterol Calculated 131(H) <100 mg/dL [facility] Comment:Desirable LDL: less than 100 mg/dLNear Optimal/Above Optimal LDL: 110- 129 mg/dLBorderline High LDL: 130-159 mg/dLHigh LDL: 160-189 mg/dLVery High LDL: greater than or equal to 190 mg/dL HDL Cholesterol 67 >40 mg/dL [facility] Comment:Desirable HDL: great er than 40 mg/dL Note: This HDL assay may give artificially low results in patients with liver disease. Blood Venous blood specimen / Unknown 09/23/2024 8:54 AM EST 09/23/2024 2:14 PM EST Lola Shine MD LAB BLOOD ORDERABLES Final Re sult [facility] [address] [place] [phone] * Colonoscopy (06/05/2013) Colonoscopy Normal Normal Narrative Sandee Galeas - 06/05/2013 Recommended 5 year follow I[ us Historical Provider HEALTH MAINTENANCE Final Result from Last 3 Months or Most Recently Relevant to Health Maintenance Insurance [facility] ONE CARE < 65 [place] [id number] Care Teams Stock Manager Relationship Specialty Start Date End Date Lola Shine MD [address] [place] [id number] PCP - General Family Medicine 10/05/18
[2025-06-19 14:34] LABS: Hemoglobin A1C 149.9929 umol/L; Total Hemoglobin (HGBA1C) 3542.3129 umol/L
[2025-06-19 14:38] LABS: Alanine Aminotransferase 34 U/L (0-31); Albumin Level 4.0 g/dL (3.5-5.0); Alkaline Phosphatase 97 U/L (39-117); Anion Gap 10 (12-20); Aspartate Amino Transferase 35 U/L (5-31); Blood Urea Nitrogen 17 mg/dL (9-16); Calcium 9.3 mg/dL (8.4-10.2); Carbon Dioxide 27 mmol/L (22-29); Chloride 110 mmol/L (96-108); Estimated Glomerular Filt Rate > 60; Potassium 4.4 mmol/L (3.3-5.1); Sodium 143 mmol/L (135-145); Total Protein 6.9 g/dL (6.5-8.0)
[2025-06-20 08:28] LABS: HBS Num1 1.84 mIU/mL (0-7.99); HBc Num1 7.42 S/CO (0.00-0.79); HBsAGNum1 0.52 S/CO (0.00-0.99); Hepatitis B Surface Antigen Negative (Negative); ~HepC Num1 0.07 S/CO (0.00-0.79); ~Hepatitis B Surface Antibody NONREACTIVE (Nonreactive); ~Hepatitis C Antibody Nonreactive (Nonreactive)
[2025-06-20 10:58] LABS: HBc Num2 6.97 S/CO; HBc Num3 6.94 S/CO
[2025-06-21 07:28] LABS: Hepatitis B Core Antibody IgM NON-REACTIVE (NON-REACTIVE)
== END 2025-06-19 10:25 | disposition home or self-care (01) ==
LOC: HO.CHCLDS 10:24
PROVIDERS: Visit Provider Pediatrics
DX: R74.01 Elevation of levels of liver transaminase levels (principal); N81.4 Uterovaginal prolapse, unspecified; Z13.1 Encounter for screening for diabetes mellitus
CPT/HCPCS: 36415; 80048; 80076; 82306; 83036; 86704; 86705; 86706; 86803; 87340